=== PATIENT | female | born 1940 | race Caucasian/White ===

== ENCOUNTER → 2017-07-08 | Day surgery (SDC) | payer OTHER ==
[~2017-07-08] VITALS: Ht 154.9 cm; Wt 57.2 kg
[~2017-07-08] MED LIST: ALLEGRA ALLERG180 MG PO; CALCIUM 600 +1 EAC1 PO; CENTRUM SILVER1 EAC5 PO; CO Q-10100 MG PO; EYE PROMISE PO; LOPRESSOR50 PO; MAGNESIUM250 M1 PO; OMEGA 3 FISH O1 EACH PO; TURMERIC 500 M1 EACH PO; TYLENOL EXTRA500 MG PO; VITAMIN B-12500 MC5 PO; XANAX 0.5 MG0.5 MG PO
--- NOTE | ~2017-07-08 | O ---
[facility] [place] [address] OPERATIVE REPORT Name: JOEL PINK Room #: REG [facility].#: [id number] Admission: 07/08/17 Attend Phys: Brian Douglas MD Discharge: Date of : 38 Report #: [id number] THIS REPORT FOR: //name// CC: Yovani Douglas DATE OF SERVICE: 07/08/2017 PREOPERATIVE DIAGNOSIS: Left femoral neck stress fracture. POSTOPERATIVE DIAGNOSIS: Left femoral neck stress fracture. PROCEDURE: Percutaneous screw fixation, left femoral neck stress fracture. SURGEON: Brian Douglas MD TAKER OUT: Gretchen Martinez PA-C INDICATIONS FOR ASSISTANCE: Throughout the case, extensive retraction and manipulation was required. This was afforded to me by my legal administrative assistant. ANESTHESIA: LMA. IMPLANTS: Synthes partially threaded short cannulated screws, size 85 for the inferior screw and size 75 for the 2 superior screws. ESTIMATED BLOOD LOSS: 25 mL. COMPLICATIONS: None. SPECIMENS: None. CONDITION UPON LEAVING THE OPERATING ROOM: Stable. INDICATIONS FOR PROCEDURE: The patient is a 77-year-old female who has a left femoral neck stress fracture. She had this verified by MRI scan and has had continued left hip and groin pain. After discussion with her, she elected for percutaneous screw fixation. DESCRIPTION OF PROCEDURE: Risks, benefits, alternatives, complications were discussed in detail with the patient including but not limited to risk of anesthesia, risk of damage to nerves, arteries, blood vessels, risk for infection, bleeding, risk for continued hip pain and need for reoperation. Informed consent was obtained from the patient. Left hip was appropriately marked in the preoperative holding area. IV Ancef was given for preoperative antibiotics. She was brought to the operating room and LMA anesthesia was [facility] [address] [place] [address] OPERATIVE REPORT Name: JOEL PINK Room #: REG [facility] M..#: [id number] Admission: 07/08/17 Attend Phys: Brian Douglas MD Discharge: Date of : 38 Report #: [id number] induced without complication. She was transferred to the [place] table. Left lower extremity was placed in slight traction. Right lower extremity was scissored. Fluoroscopic imaging was brought in to verify the adequate AP and lateral images could be obtained. Left hip and lower extremity were prepped and draped in normal sterile fashion. Timeout was performed, properly identifying the patient and procedure as well as instrumentation. All in the operating room were in agreement. A 2-inch incision over the lateral thigh was made with 10 blade through the skin and fascia. A threaded tip guidewire was placed for the posterior inferior screw and was taken up into the femoral head under AP and lateral images. The Oswaldo gun was then used to place the 2 superior screws, both the anterior and the posterior screw. After verifying adequate pin length, this was measured and the inferior screw was an 85 and the 2 superior screws were 75 in length. The lateral cortex was then drilled and then these screws were placed first under power and then hand tightened. After this, final fluoroscopic images were taken to verify adequate placement of the screws and length of screws. Wound was thoroughly irrigated with normal saline and closed with 2-0 Vicryl and skin stanton, soft dressing of Adaptic, 4 x 4, ABD and Medipore tape were applied. The patient tolerated this procedure well and went to recovery room under care of Anesthesia postoperatively. <ELECTRONICALLY SIGNED> By: Brian Douglas MD 07/16/17 0735 [id number] Brian Douglas MD /nt
== END ==
LOC: OR 05:32 → TBA 05:32 → PRE 05:32 → TBA 15:30 → PRE 15:50 → EDSTATUS 16:45
DX: M84.352A Stress fracture, left femur, initial encounter for fracture (principal); M16.0 Bilateral primary osteoarthritis of hip; Z88.0 Allergy status to penicillin; Z88.2 Allergy status to sulfonamides; X58.XXXA Exposure to other specified factors, initial encounter; Y93.9 Activity, unspecified; Y92.89 Other specified places as the place of occurrence of the external cause; Y99.8 Other external cause status
CPT/HCPCS: 50010; 50101; 50386; 51412; 51538; 52304; 53400; 53404; 56524; 57092; 62110; 62900; 70005